=== PATIENT | female | born 2000 | race Caucasian/White ===

== ENCOUNTER 2022-09-06 09:04 | Emergency (ER) | payer MEDICAID ==
[~2022-09-06] VITALS: Ht 157.5 cm; Wt 44.5 kg
[2022-09-06 09:20] VITALS: BP 96/59
== END 2022-09-06 10:27 | disposition home or self-care (01) ==
LOC: ER 09:05
DX: H01.021 Squamous blepharitis right upper eyelid (principal)
CPT/HCPCS: 99281